=== PATIENT | male | born 1985 | race Caucasian/White ===

== ENCOUNTER 2024-11-30 01:13 | Emergency (ER) | payer OTHER, SELFPAY ==
[2024-11-30 01:36] VITALS: BP 154/84; PULSE 77; RESP 16; TEMP 36.9; O2SAT 96; BMI 42.0
[2024-11-30] MEDS: ONDANSETRON 4 MG/2 ML INJ IV (02:04)
[2024-11-30 02:16] LABS: Add Manual Diff / Slide Review NO; Hematocrit 41.7 % (36-46); Hemoglobin 14.2 g/dL (12.0-16.0); Lymphocytes Absolute Auto 4000 /uL (1100-4500); Mean Corpuscular HGB Conc 34.0 % (30-36); Mean Corpuscular Hemoglobin 29.4 PG (26-34); Mean Corpuscular Volume 86.5 fL (80-100); Platelet Count 345 X10^3/uL (150-400)
[2024-11-30 02:33] LABS: Alanine Aminotransferase 26 IU/L (<35); Albumin 4.2 g/dL (3.5-5.0); Albumin Globulin Ratio 1.1 (1.0-2.8); Alkaline Phosphatase 70 U/L (38-126); Blood Urea Nitrogen 12 mg/dL (7-17); Calcium 9.1 mg/dL (8.4-10.2); Carbon Dioxide 21 mmol/L (22-32); Chloride 109 mmol/L (98-107); Estimated Glomerular Filt Rate > 60 mL/min (>60); Globulin 3.8 g/dL (1.7-4.1); Glucose 108 mg/dL (70-99); HEMOLYSIS 29 (0-50); Lipase 104 U/L (23-300); Potassium 4.0 mmol/L (3.4-5.1); Sodium 138 mmol/L (137-145); Total Protein 8.0 g/dL (6.3-8.2)
--- NOTE | 2024-11-30 04:34 | DI.CT.S_ITS ---
PROCEDURE: CT ABDOMEN PELVIS WO CON INDICATIONS: ruq abdominal pain TECHNIQUE: CT of the abdomen and pelvis was obtained without intravenous contrast. Coronal and sagittal reformats were performed. For radiation dose reduction, the following was used: automated exposure control, adjustment of mA and/or kV according to patient size. COMPARISON: [facility], CT, CT ABDOMEN PELVIS WITH CONTRAST, 10/27/2024, 2:40. FINDINGS: Image quality: Diagnostic. Lower Chest: No significant findings. ABDOMEN: Liver: No contour-deforming mass. Gallbladder: Status post cholecystectomy. Normal caliber CBD. Biliary ducts: No biliary dilation. Pancreas: No ductal dilation. Spleen: Size is within normal limits. Adrenal Glands: 1.2 cm left adrenal nodule measuring -10.3 Hounsfield units on image 38 is most consistent with an adenoma. Normal right adrenal gland. Kidneys and Ureters: No hydronephrosis. No contour-deforming mass. Stomach and Bowel: Normal colonic caliber, without significant wall thickening. Colon diverticulosis is noted without inflammatory changes concerning for acute diverticulitis. Normal appendix. Minimal mesenteric root fat stranding with subcentimeter lymph nodes. No obvious bulky lymphadenopathy. Possible mild small bowel wall thickening in the jejunum. These findings are likely accentuated by incomplete distention. Peritoneum: No abnormal intraperitoneal fluid. No free air. Ventral Wall: No significant hernia. Abdominal Nodes: No retroperitoneal or mesenteric adenopathy by size criteria. Vessels: Aorta and inferior vena cava are normal in size. PELVIS: Pelvic Organs: Status post hysterectomy. Bladder: Unremarkable. Pelvic Nodes: No enlarged lymph nodes. Miscellaneous: No inguinal hernias are seen. Bones: No aggressive osseous abnormality. IMPRESSION: Possible small bowel wall thickening in the jejunum. Correlate for enteritis symptoms. No complications such as obstruction, perforation or abscess. Appendix is normal. Ill-defined fat stranding in the mesenteric root with small subcentimeter lymph nodes. Imaging findings are nonspecific but can be associated with mesenteric panniculitis. Status post hysterectomy and cholecystectomy. Agree with preliminary interpretation by [facility]. Dictated by: Tete White M.D. on 11/30/2024 at 8:48 Approved by: Tete White M.D. on 11/30/2024 at 8:54
--- NOTE | 2024-11-30 04:34 | ED.ABDPAIN ---
HPI - Abdominal Pain General Chief Complaint: Abdominal Pain Stated Complaint: R Side Rib Pain Time Seen by Provider: 11/30/24 04:12 Source: patient Mode of arrival: Ambulatory History of Present Illness HPI narrative: 39-year-old male who had some sudden right upper quadrant abdominal pain earlier this evening that was more sharp in nature. Patient does recall eating some new foods prior to this pain. He does have a history of a cholecystectomy. No fever no chills no other symptoms. Related Data Previous Rx's ?Medication ?Instructions ?Recorded methylprednisolone 4 mg tablets in See Rx Instructions PO .COMPLEX 11/30/24 a dose pack (Medrol (Nael)) #21 ea Allergies Allergy/AdvReac Type Severity Reaction Status Date / Time Iodinated Contrast Media Allergy Mild ITCHING Verified 11/30/24 01:36 bupropion (From Wellbutrin) Allergy Verified 11/30/24 01:36 fish derived Allergy Verified 11/30/24 01:36 morphine Allergy Verified 11/30/24 01:36 Review of Systems Review of Systems ROS Unobtainable: All systems reviewed & are unremarkable except as noted in HPI and below Patient History Smoking Status: Never smoker Exam Narrative Exam Narrative: General: Patient appears to be in no acute distress, acting appropriately Head: normocephalic, atraumatic, HEENT: Pupils equal round reactive, eyes tracking well, neck supple, no JVD Heart: regular rate and rhythm, no murmurs, rubs, or gallops heard Lungs: clear to auscultation, no adventitious sounds Abdomen: soft , pain with palpation in the right upper quadrant area, nondistended, positive bowel sounds Neurological: no focal neurological signs, moving all extremities well, alert and oriented x3, Psych: good judgment ,good insight, mood is normal. Initial Vital Signs Initial Vital Signs: Vital Signs Temperature 98.4 F 11/30/24 01:36 Pulse Rate 77 11/30/24 01:36 Respiratory Rate 16 11/30/24 01:36 Blood Pressure 154/84 H 11/30/24 01:36 Pulse Oximetry 96 11/30/24 01:36 Oxygen Delivery Method Room Air 11/30/24 01:36 Course Orders Ordered: ED Orders 11/30/24 01:55 Complete Blood Count AUTO DIFF Stat Comprehensive Metabolic Panel Stat Lipase Stat 11/30/24 04:30 Urinalysis and Microscopic Stat 11/30/24 04:34 CT abdomen pelvis wo con Stat Ondansetron HCl (Ondansetron 4 Mg/2 Ml Inj) 4 mg IV NOW PRN PRN Reason: Nausea And Vomiting Last Admin: 11/30/24 02:04 Dose: 4 mg Documented By: ZIA Ondansetron HCl (Ondansetron 4 Mg Odt) 4 mg PO NOW PRN PRN Reason: Nausea And Vomiting Discontinued Medications Dexamethasone (Dexamethasone 10 Mg/Ml Vial) 6 mg IV NOW ONE Stop: 11/30/24 05:37 Last Admin: 11/30/24 05:44 Dose: 6 mg Hydromorphone HCl (Hydromorphone Hcl 0.5 Mg/0.5 Ml Syringe) 0.5 mg IV NOW ONE Stop: 11/30/24 04:35 Last Admin: 11/30/24 04:44 Dose: 0.5 mg Hydromorphone HCl (Hydromorphone Hcl 0.5 Mg/0.5 Ml Syringe) 0.5 mg IV NOW ONE Stop: 11/30/24 05:33 Last Admin: 11/30/24 05:41 Dose: 0.5 mg Reevaluation(s) Reevaluation #1: Upon re-evaluation, patient's pain improved some after some Dilaudid and dexamethasone. Vital Signs Vital signs: Vital Signs - 8 hr 11/30/24 01:36 11/30/24 04:38 11/30/24 04:40 Temperature 98.4 F Pulse Rate 77 75 82 Respiratory Rate 16 31 H Blood Pressure 154/84 H Pulse Oximetry 96 97 96 Oxygen Delivery Method Room Air Room Air Room Air 11/30/24 04:40 Temperature Pulse Rate Respiratory Rate Blood Pressure 119/73 Pulse Oximetry Oxygen Delivery Method MDM - Abdominal Pain Lab Data 11/30/24 01:55 11/30/24 01:55 Labs: Lab Results 11/30/24 11/30/24 Range/Units 01:55 04:30 WBC 13.2 H (4.5-11.0) X10^3/uL RBC 4.82 (4.0-5.2) X10^6/uL Hgb 14.2 (12.0-16.0) g/dL Hct 41.7 (36-46) % MCV 86.5 (80-100) fL MCH 29.4 (26-34) PG MCHC 34.0 (30-36) % RDW 13.8 (11.6-14.8) % Plt Count 345 (150-400) X10^3/uL Neut % (Auto) 59.1 (50-75) % Lymph % (Auto) 30.4 (25-40) % [place] % (Auto) 6.9 (3-14) % Eos % (Auto) 2.2 (2-4) % Baso % (Auto) 1.4 (0-2) % Neut # (Auto) 7800 H (3331-7499) /uL Lymph # (Auto) 4000 (6398-9303) /uL [place] # (Auto) 900 (0-900) /uL Eos # (Auto) 300 (0-450) /uL Baso # (Auto) 200 H (0-100) /uL Sodium 138 (137-145) mmol/L Potassium 4.0 (3.4-5.1) mmol/L Chloride 109 H (98-107) mmol/L Carbon Dioxide 21 L (22-32) mmol/L BUN 12 (7-17) mg/dL Creatinine 0.64 (0.52-1.04) mg/dL Estimated GFR > 60 (>60) mL/min BUN/Creatinine Ratio 18.8 (6-22) Glucose 108 H (70-99) mg/dL Calcium 9.1 (8.4-10.2) mg/dL Total Bilirubin 0.2 (0.2-1.3) mg/dL AST 22 (14-36) IU/L ALT 26 (<35) IU/L Alkaline Phosphatase 70 (38-126) U/L Total Protein 8.0 (6.3-8.2) g/dL Albumin 4.2 (3.5-5.0) g/dL Globulin 3.8 (1.7-4.1) g/dL Albumin/Globulin Ratio 1.1 (1.0-2.8) Lipase 104 (23-300) U/L Urine Color Yellow Urine Appearance Clear Urine pH 6.0 (4.5-8.0) Ur Specific [place] >=1.030 H (1.000-1.035) Urine Protein Negative (Negative) Urine Glucose (UA) Negative (Negative) g/dL Urine Ketones Negative (NEGATIVE) Urine Occult Blood Negative (Negative) Urine Nitrate Negative (Negative) Urine Bilirubin Negative (NEGATIVE) Urine Urobilinogen 0.2 (0.2) E.U./dL Ur Leukocyte Esterase Negative (NEGATIVE) Urine RBC None seen (0-5/HPF) Urine WBC 0-1/hpf (0-5/HPF) Ur Squamous Epith Cells 0-1 /hpf (0-5/HPF) Ur Transition Epith Cell 0-1/hpf (0-5/HPF) Urine Bacteria None seen (None) Vol Urine Centrifuged 10ml (spun) Imaging Data CT scan - abdomen/pelvis: Radiologist's Impression: Ill-defined stranding noted that the root of mesentery with associated prominent yet subcentimeter mesenteric lymph nodes. This is nonspecific finding but can be seen in setting of mesenteric panniculitis. No evidence of colitis, diverticulitis or bowel obstruction, obstructive uropathy, or acute appendicitis. [facility] Narrative Medical decision making narrative: 39-year-old male with sudden abdominal pain earlier this evening. It appears that there is some nonspecific finding of potential mesenteric panniculitis. Patient improved some with some Dilaudid and dexamethasone here in the ED. we will prescribe the patient a Medrol Dosepak to continue on as an outpatient and advised to follow up with PCP as planned. Come back to ER if abdominal pain worsens. Discharge Plan Departure Patient Disposition: Home Clinical Impression: Mesenteric panniculitis Instructions: DI for Mesenteric Adenitis-Adult Activity Restrictions/Additional Instructions: Unclear of why there is some inflammation in the fat tissue around your intestine. Take the steroids as prescribed. Follow up with PCP if not improved or can come back to ER if abdominal pain worsens. Prescriptions: New methylprednisolone [Medrol (Nael)] 4 mg tablets,dose pack See Rx Instructions .ROUTE .COMPLEX Qty: 21 0RF Rx Instructions: orally per package directions Stand Alone Forms: Patient Portal/API
[2024-11-30 04:37] LABS: Appearance Urine UA CLEAR; Bilirubin Urine UA NEGATIVE (NEGATIVE); Color Urine UA YELLOW; Glucose Urine UA NEGATIVE (Negative); Ketones Urine UA NEGATIVE (NEGATIVE); Leukocyte Esterase Urine UA NEGATIVE (NEGATIVE); Nitrite Urine UA NEGATIVE (Negative); Occult Blood Urine UA NEGATIVE (Negative); Protein Urine UA NEGATIVE (Negative); Specific Gravity Urine UA >=1.030 (1.000-1.035); Urobilinogen Urine UA 0.2 E.U./dL (0.2)
[2024-11-30 04:38] VITALS: PULSE 75; O2SAT 97
[2024-11-30 04:40] VITALS: BP 119/73; PULSE 82; RESP 31; O2SAT 96
[2024-11-30 04:40] LABS: pH Urine UA 6.0 (4.5-8.0)
--- NOTE | 2024-11-30 04:46 | PC.NURSE ---
Pt to imaging via ED stretcher with computer hardware technician
--- NOTE | 2024-11-30 05:21 | PC.NURSE ---
Pt ambulatory to restroom without difficulty or assistance
== END 2024-11-30 06:13 | disposition home or self-care (01) ==
PROVIDERS: Emergency Provider Family Medicine
DX: K65.4 Sclerosing mesenteritis (principal)
CPT/HCPCS: 36415; 74176; 80053; 81001; 83690; 85025; 96374; 96375; 96376; 99284; J1100; J1171; J2405

== ENCOUNTER 2024-12-10 00:39 | Emergency (ER) | payer OTHER, SELFPAY ==
[2024-12-10 00:49] VITALS: BP 136/80; PULSE 70; RESP 19; TEMP 36.5; O2SAT 100; BMI 42.0
[2024-12-10 02:37] LABS: Add Manual Diff / Slide Review NO; Hematocrit 42.6 % (41-53); Hemoglobin 14.6 g/dL (13.5-17.5); Lymphocytes Absolute Auto 4000 /uL (1100-4500); Mean Corpuscular HGB Conc 34.3 % (30-36); Mean Corpuscular Hemoglobin 29.8 PG (26-34); Mean Corpuscular Volume 86.8 fL (80-100); Platelet Count 363 X10^3/uL (150-400)
[2024-12-10 02:56] LABS: Alanine Aminotransferase 20 IU/L (<50); Albumin 4.4 g/dL (3.5-5.0); Albumin Globulin Ratio 1.2 (1.0-2.8); Alkaline Phosphatase 81 U/L (38-126); Blood Urea Nitrogen 8 mg/dL (9-20); Calcium 9.5 mg/dL (8.4-10.2); Carbon Dioxide 21 mmol/L (22-32); Chloride 107 mmol/L (98-107); Estimated Glomerular Filt Rate > 60 mL/min (>60); Globulin 3.8 g/dL (1.7-4.1); Glucose 103 mg/dL (70-99); HEMOLYSIS < 15 (0-50); Lipase 82 U/L (23-300); Potassium 4.2 mmol/L (3.4-5.1); Sodium 139 mmol/L (137-145); Total Protein 8.2 g/dL (6.3-8.2)
[2024-12-10 03:17] LABS: Appearance Urine UA CLEAR; Bilirubin Urine UA NEGATIVE (NEGATIVE); Color Urine UA YELLOW; Glucose Urine UA NEGATIVE (Negative); Ketones Urine UA NEGATIVE (NEGATIVE); Leukocyte Esterase Urine UA NEGATIVE (NEGATIVE); Nitrite Urine UA NEGATIVE (Negative); Occult Blood Urine UA NEGATIVE (Negative); Protein Urine UA NEGATIVE (Negative); Specific Gravity Urine UA 1.020 (1.000-1.035); Urobilinogen Urine UA 0.2 E.U./dL (0.2); pH Urine UA 5.5 (4.5-8.0)
--- NOTE | 2024-12-10 03:17 | ED.ABDPAIN ---
HPI - Abdominal Pain General Chief Complaint: Abdominal Pain Stated Complaint: URQ Pain, N, diarrhea Time Seen by Provider: 12/10/24 02:24 Source: patient Mode of arrival: Ambulatory History of Present Illness HPI narrative: 39-year-old male status post transition gender reassignment surgery 4 years ago, identifies as female, prior cholecystectomy remote, history of mesenteric panniculitis, complains of 18 hours duration nontraumatic right flank and right anterior abdominal pain. Denies known history of kidney stones, denies history of urinary tract infections, no painful or frequent urination. Some nausea without emesis. No recent diarrhea loose stools for black or red stools or mucoid stools. No history recalled of prior episodes colitis, diverticulitis, Crohn's disease peptic ulcers. Related Data Previous Rx's ?Medication ?Instructions ?Recorded methylprednisolone 4 mg tablets in See Rx Instructions PO .COMPLEX 11/30/24 a dose pack (Medrol (Nael)) #21 ea prednisone 20 mg tablet 40 mg (2 x 20 mg) PO DAILY 5 days 12/10/24 #10 tabs Allergies Allergy/AdvReac Type Severity Reaction Status Date / Time Iodinated Contrast Media Allergy Mild ITCHING Verified 12/10/24 00:48 bupropion (From Wellbutrin) Allergy Verified 12/10/24 00:48 fish derived Allergy Verified 12/10/24 00:48 morphine Allergy Verified 12/10/24 00:48 Patient History Social History Smoking Status: Former smoker Smoking Status: Former smoker tobacco type: cigarettes Exam Narrative Exam Narrative: GENERAL: Well-developed patient, in mild distress. HEAD: Atraumatic. Normocephalic. EYES: Pupils equal round and reactive. Extraocular motions intact. No scleral icterus. No injection or drainage. ENT: Nose without bleeding, purulent drainage. Throat without erythema, tonsillar hypertrophy or exudate. Airway patent. NECK: Trachea midline. Non tender CARDIOVASCULAR: Regular rate and rhythm without murmurs, gallops, or rubs. RESPIRATORY: Clear to auscultation. Breath sounds equal bilaterally. No wheezes, rales, or rhonchi. GASTROINTESTINAL: Obese with pannus, no skin redness or lesions. Mild tenderness right upper quadrant, right middle quadrant right lower quadrant abdomen. Nondistended. Bowel tones unremarkable without rushes or tinkles. EXTREMITIES: No edema or joint tenderness. BACK: Nontender without deformity or crepitance. No flank tenderness. NEURO: AOx3. Motor functions grossly nonfocal. SKIN: No rash or erythema of visible areas Initial Vital Signs Initial Vital Signs: Vital Signs Temperature 97.7 F 12/10/24 00:49 Pulse Rate 70 12/10/24 00:49 Respiratory Rate 19 12/10/24 00:49 Blood Pressure 136/80 12/10/24 00:49 Pulse Oximetry 100 12/10/24 00:49 Oxygen Delivery Method Room Air 12/10/24 00:49 Course Orders Ordered: Discontinued Medications Hydromorphone HCl (Hydromorphone Hcl 0.5 Mg/0.5 Ml Syringe) 0.5 mg IV NOW ONE Stop: 12/10/24 03:29 Last Admin: 12/10/24 03:45 Dose: 0.5 mg Documented By: Sodium Chloride (Normal Saline 0.9%) 1,000 mls @ 1,000 mls/hr IV BOLUS ONE Stop: 12/10/24 04:25 Last Infusion: 12/10/24 04:52 Dose: Infused Documented By: Admin: 12/10/24 03:44 Dose: 1,000 mls/hr Documented By: Methocarbamol (Methocarbamol 500 Mg Tablet) 500 mg PO NOW ONE Stop: 12/10/24 04:34 Last Admin: 12/10/24 04:57 Dose: Not Given Documented By: Ondansetron HCl (Ondansetron 4 Mg/2 Ml Inj) 4 mg IV NOW ONE Stop: 12/10/24 03:29 Last Admin: 12/10/24 03:44 Dose: 4 mg Documented By: Prednisone (Prednisone 20 Mg Tablet) 60 mg PO NOW ONE Stop: 12/10/24 04:40 Last Admin: 12/10/24 04:51 Dose: 60 mg Documented By: Tramadol HCl (Tramadol 50 Mg Tablet) 50 mg PO NOW ONE Stop: 12/10/24 04:35 Last Admin: 12/10/24 04:51 Dose: 50 mg Documented By: Tramadol HCl (Tramadol 50 Mg Prepack) 1 bottle MISC DIRECTED ONE Stop: 12/10/24 04:35 Last Admin: 12/10/24 04:51 Dose: 1 bottle Documented By: Vital Signs Vital signs: Vital Signs - 8 hr 12/10/24 00:49 Temperature 97.7 F Pulse Rate 70 Respiratory Rate 19 Blood Pressure 136/80 Pulse Oximetry 100 Oxygen Delivery Method Room Air MDM - Abdominal Pain Lab Data Attestation: I reviewed the patient's lab results. Lab results narrative: White blood cell count 01984, hemoglobin 14.6, platelets adequate. Glucose 103. Renal function and electrolytes normal. Serum CO2 21 slight decreased. Liver functions and lipase normal. 12/10/24 02:08 12/10/24 02:08 Labs: Lab Results 12/10/24 12/10/24 Range/Units 02:08 03:08 WBC 13.5 H (4.5-11.0) X10^3/uL RBC 4.91 (4.5-5.9) X10^6/uL Hgb 14.6 (13.5-17.5) g/dL Hct 42.6 (41-53) % MCV 86.8 (80-100) fL MCH 29.8 (26-34) PG MCHC 34.3 (30-36) % RDW 13.7 (11.6-14.8) % Plt Count 363 (150-400) X10^3/uL Neut % (Auto) 56.9 (50-75) % Lymph % (Auto) 30.0 (25-40) % [place] % (Auto) 8.9 (3-14) % Eos % (Auto) 2.0 (2-4) % Baso % (Auto) 2.2 H (0-2) % Neut # (Auto) 7700 H (0213-5609) /uL Lymph # (Auto) 4000 (0014-8862) /uL [place] # (Auto) 1200 H (0-900) /uL Eos # (Auto) 300 (0-450) /uL Baso # (Auto) 300 H (0-100) /uL Sodium 139 (137-145) mmol/L Potassium 4.2 (3.4-5.1) mmol/L Chloride 107 (98-107) mmol/L Carbon Dioxide 21 L (22-32) mmol/L BUN 8 L (9-20) mg/dL Creatinine 0.73 (0.66-1.25) mg/dL Estimated GFR > 60 (>60) mL/min BUN/Creatinine Ratio 11.0 (6-22) Glucose 103 H (70-99) mg/dL Calcium 9.5 (8.4-10.2) mg/dL Total Bilirubin 0.3 (0.2-1.3) mg/dL AST 22 (17-59) IU/L ALT 20 (<50) IU/L Alkaline Phosphatase 81 (38-126) U/L Total Protein 8.2 (6.3-8.2) g/dL Albumin 4.4 (3.5-5.0) g/dL Globulin 3.8 (1.7-4.1) g/dL Albumin/Globulin Ratio 1.2 (1.0-2.8) Lipase 82 (23-300) U/L Urine Color Yellow Urine Appearance Clear Urine pH 5.5 (4.5-8.0) Ur Specific [place] 1.020 (1.000-1.035) Urine Protein Negative (Negative) Urine Glucose (UA) Negative (Negative) g/dL Urine Ketones Negative (NEGATIVE) Urine Occult Blood Negative (Negative) Urine Nitrate Negative (Negative) Urine Bilirubin Negative (NEGATIVE) Urine Urobilinogen 0.2 (0.2) E.U./dL Ur Leukocyte Esterase Negative (NEGATIVE) Urine RBC None seen (0-5/HPF) Urine WBC None seen (0-5/HPF) Ur Squamous Epith Cells 0-1 /hpf (0-5/HPF) Urine Bacteria None seen (None) Ur Culture Indicated? Cult not indicated Vol Urine Centrifuged 10ml (spun) MDM Narrative Medical decision making narrative: Right sided abominal pain, afebrile, SIRS screen negative. Prior mesenteric panniculitis. Remote sidra. DDx includes PUD, colitis, diverticulitis, UTI, ureretal stone, bowel obstruction, hernia, choledocholitiasis, pancreatitis, recurrence mesenteric pannicuitis, muscular/radicular, constipation, other. Lab data: White blood cell count 97067, hemoglobin 14.6, platelets adequate. Glucose 103. Renal function and electrolytes normal. Serum CO2 21 slight decreased. Liver functions and lipase normal. CT abdomen and pelvis. Impressions: ?No acute findings. Left adrenal adenoma. See tele radiology report. In the text portion there is also description ?mildly increased density of the central mesentery compatible with mild mesenteric panniculitis,? that was not mentioned in the impression section. Unclear if mesenteric panniculitis is acute, chronic, or even related to current right sided pain. Trial of steroid, recent Medrol Dosepak tapering regimen noted. We will give oral prednisone 60 mg now, and prednisone pulse 40 mg daily for the next 5 days. Consider follow up with PCP if not improving in the next couple of days. Contact information provided for general surgery clinic as well, though this is not typically a surgical emergency or surgical amenable condition. Consider EGD or other further dx evaluation as outpatient for now. Return precautions. Discharged home. Home pack of tramadol to use for pain control if needed. Discharge Plan Departure Patient Disposition: Home Clinical Impression: Abdominal pain, Mesenteric panniculitis, Adrenal adenoma Activity Restrictions/Additional Instructions: History of mesenteric panniculitis, prior remote gallbladder surgery, previous gender revision surgeries. Right-sided abdominal discomfort. Recent mesenteric panniculitis having treated with a course of tapering methyl prednisolone Medrol Dosepak steroid. Screening labs unremarkable. CT showed no colitis or diverticulitis, did show some prominence of the central mesentery suspicious for mesenteric panniculitis. This might be an acute finding or could be more chronic. We will try course of steroids with slightly different class, oral prednisone 60 mg given in the emergency department, with prescription for prednisone pulse 40 mg daily for the next 5 days, prescription sent to your pharmacy. Home pack of tramadol for pain control if needed. Recheck symptoms with your regular doctor, given contact information for local general surgery as well. You might need referral from your primary care provider. Recheck with your regular doctor in the next couple of days if symptoms are not improving. Return to this/nearest emergency department for any change worsening symptoms or any concerns prior. Adrenal adenoma incidentally noted on imaging. This is not a painful condition, further workup an outpatient for now with your regular doctor. Prescriptions: New prednisone 20 mg tablet 40 mg PO DAILY 5 Days Qty: 10 0RF No Action methylprednisolone [Medrol (Nael)] 4 mg tablets,dose pack See Rx Instructions .ROUTE .COMPLEX Qty: 21 0RF Rx Instructions: orally per package directions Referrals: Jamie Lee MD [Physician, General Surgery] Preston Gordon MD [Physician, General Surgery] Stand Alone Forms: Patient Portal/API
[2024-12-10 03:24] LABS: Culture Indicated Urine Cult Not Indicated
--- NOTE | 2024-12-10 03:27 | DI.CT.S_ITS ---
PROCEDURE: CT ABDOMEN PELVIS WO CON INDICATIONS: R flank/abd pain, hx contrast allergy TECHNIQUE: CT of the abdomen and pelvis was obtained without intravenous contrast. Coronal and sagittal reformats were performed. For radiation dose reduction, the following was used: automated exposure control, adjustment of mA and/or kV according to patient size. COMPARISON: [facility], CT, CT ABDOMEN PELVIS WO CON, 11/30/2024, 4:44. [facility], CT, CT CHEST ABDOMEN PELVIS WITHOUT CONTRAST, 12/01/2024, 1:26. FINDINGS: Image quality: Diagnostic Lower chest: Unremarkable lung bases. Breast implants partially seen. Liver: Hepatic steatosis. No contour deforming mass. Solid organs are not well assessed without IV contrast Gallbladder and biliary system: Cholecystectomy clips, mildly ectatic biliary system again seen, probably related to post surgical state Pancreas: No ductal dilation Spleen: Nonenlarged Adrenals: 1.6 cm left adrenal adenoma. Kidneys: No hydronephrosis. No contour deforming mass. No calcified stone identified. Vessels and lymph nodes: No abdominal aortic aneurysm. No enlarged lymph nodes by size criteria Bowel and peritoneum: No bowel obstruction. No drainable abscess or ascites Nondilated appendix Body wall: Unremarkable Pelvis: Under distended urinary bladder. Prostate is not well assessed on this study. Small focus of gas again seen at the posterior aspect. Bones: No aggressive appearing osseous abnormality. IMPRESSION: No acute abdominal pelvic abnormality. No hydronephrosis or obstructing stone identified. No significant discrepancy from the preliminary report. Other findings above. Dictated by: Lázaro Schwartz M.D. on 12/10/2024 at 7:27 Approved by: Lázaro Schwartz M.D. on 12/10/2024 at 7:31
[2024-12-10] MEDS: ONDANSETRON 4 MG/2 ML INJ IV (03:44)
[2024-12-10] MEDS: SODIUM CHLORIDE 0.9% 1,000 ML 1000 ML IV (03:44)
[2024-12-10 04:57] VITALS: BP 133/83; PULSE 74; RESP 18; O2SAT 98
== END 2024-12-10 04:58 | disposition home or self-care (01) ==
PROVIDERS: Emergency Provider Emergency Medicine
DX: K65.4 Sclerosing mesenteritis (principal); D35.02 Benign neoplasm of left adrenal gland; R10.9 Unspecified abdominal pain; R11.0 Nausea; F17.210 Nicotine dependence, cigarettes, uncomplicated
CPT/HCPCS: 36415; 74176; 80053; 81001; 83690; 85025; 96361; 96374; 96375; 99284; J1171; J2405; J7030

== ENCOUNTER 2025-02-15 19:49 | Emergency (ER) | payer OTHER, SELFPAY ==
[2025-02-15 20:36] VITALS: BP 130/75; PULSE 77; RESP 16; TEMP 36.8; O2SAT 97; BMI 42.8
--- NOTE | 2025-02-15 20:50 | PC.NURSE ---
triaged pt and returned to [facility], informed of extended wait times, and provided ice pack, pt agreeable
--- NOTE | 2025-02-15 21:54 | DI.RAD.S_ITS ---
PROCEDURE: XR SHOULDER RT MIN 2V INDICATIONS: injury TECHNIQUE: 3 views of the shoulder were acquired. COMPARISON: None. FINDINGS: Bones: No fractures or dislocations. No suspicious bony lesions. Visualized ribs appear intact. Soft tissues: No suspicious soft tissue calcifications. IMPRESSION: No visualized acute fracture or dislocation. However, if clinical concern and/or pain persist, short interval imaging followup in 7-10 days is recommended, as occult injury cannot be definitively excluded. Dictated by: Kathryn Mendoza M.D. on 02/15/2025 at 22:30 Approved by: Kathryn Mendoza M.D. on 02/15/2025 at 22:32
--- NOTE | 2025-02-16 00:15 | ED_ITS ---
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 Hurts with movement. Sensation of dislocation/relocation. No numbness or tingling to distal forearm in the right side. No weakness to the elbow forearm wrist fingers. Related Data Previous Rx's ?Medication ?Instructions ?Recorded methylprednisolone 4 mg tablets in See Rx Instructions PO .COMPLEX 11/30/24 a dose pack (Medrol (Nael)) #21 ea Allergies Allergy/AdvReac Type Severity Reaction Status Date / Time Iodinated Contrast Media Allergy Mild ITCHING Verified 02/15/25 20:50 bupropion (From Wellbutrin) Allergy Verified 02/15/25 20:50 fish derived Allergy Verified 02/15/25 20:50 morphine Allergy Verified 02/15/25 20:50 Patient History tobacco type: cigarettes Exam Narrative Exam Narrative: GENERAL: Well-developed patient, in mild distress. HEAD: Atraumatic. Normocephalic. EYES: Pupils equal round and reactive. Extraocular motions intact. No scleral icterus. No injection or drainage. ENT: Nose without bleeding, purulent drainage. Throat without erythema, tonsillar hypertrophy or exudate. Airway patent. NECK: Trachea midline. Non tender CARDIOVASCULAR: Regular rate and rhythm without murmurs, gallops, or rubs. RESPIRATORY: Clear to auscultation. Breath sounds equal bilaterally. No wheezes, rales, or rhonchi. GASTROINTESTINAL: Abdomen soft, non-tender, nondistended. EXTREMITIES: No anterior fullness or step-off right shoulder, some tenderness to the right anterior shoulder bicipital groove, no tenderness along the clavicle nor trapezius or scapula. BACK: Nontender without deformity or crepitance. No flank tenderness. NEURO: AOx3. Motor functions grossly nonfocal. SKIN: No rash or erythema of visible areas Initial Vital Signs Initial Vital Signs: Vital Signs Temperature 98.2 F 02/15/25 20:36 Pulse Rate 77 02/15/25 20:36 Respiratory Rate 16 02/15/25 20:36 Blood Pressure 130/75 02/15/25 20:36 Pulse Oximetry 97 02/15/25 20:36 Oxygen Delivery Method Room Air 02/15/25 20:36 Course Orders Ordered: ED Orders 02/15/25 21:54 XR shoulder RT 2+ views Stat Discontinued Medications Hydrocodone Bitart/Acetaminophen (Hydrocodone/Acet 5/325 Tablet) 1 tab PO NOW ONE Stop: 02/16/25 00:23 Last Admin: 02/16/25 00:26 Dose: 1 tab Documented By: Hydrocodone Bitart/Acetaminophen (Hydrocodone/Acet 5/325 Prepack) 1 bottle MISC DIRECTED ONE Stop: 02/16/25 00:23 Last Admin: 02/16/25 00:27 Dose: 1 bottle Documented By: Vital Signs Vital signs: Vital Signs - 8 hr 02/16/25 00:23 Pulse Rate 86 Respiratory Rate 18 Blood Pressure 143/85 H Pulse Oximetry 98 Oxygen Delivery Method Room Air MDM - Extremity Injury (Upper) Imaging Data Right shoulder x-ray series: Radiologist's Impression: [address] [address] XRay Report Signed Patient: Yahaira Gillette MR#: [id number] : 1985 Acct:[id number] Age/Sex: 40 / F Date of Service: 02/15/25 Loc: ED Accession Number: [id number] Procedure: XR shoulder RT 2+ views Ordering Provider: Amanda Santos MD PROCEDURE: XR SHOULDER RT MIN 2V INDICATIONS: injury TECHNIQUE: 3 views of the shoulder were acquired. COMPARISON: None. FINDINGS: Bones: No fractures or dislocations. No suspicious bony lesions. Visualized ribs appear intact. Soft tissues: No suspicious soft tissue calcifications. IMPRESSION: No visualized acute fracture or dislocation. However, if clinical concern and/or pain persist, short interval imaging followup in 7-10 days is recommended, as occult injury cannot be definitively excluded. Dictated by: Kathryn Mendoza M.D. on 02/15/2025 at 22:30 Approved by: Kathryn Mendoza M.D. on 02/15/2025 at 22:32 [facility] [place] Narrative Medical decision making narrative: 40-year-old female with prior right rotator cuff shoulder injury treated conservatively, successfully completed physical therapy course, had new injury lifting tonight, same right side, anterior bicipital groove area tenderness, without gross step-off or anterior fullness. X-ray without fracture dislocation changes, see radiology report. Placed in right shoulder immobilizer. Follow up with Orthopedic surgery advised. Dose given for hydrocodone/APAP, home pack provided. Discharged home with family. Follow up with Orthopedic surgery as above. Return precautions discussed. Discharge Plan Departure Patient Disposition: Home Clinical Impression: Right shoulder strain Activity Restrictions/Additional Instructions: Right-handed, history of right shoulder rotator cuff injury treated conservatively without surgery, completed a course of physical therapy. New injury with right anterior shoulder pain today. X-ray without dislocation changes, nor any fracture bony changes. Placed in sling. Pain medications given. Consider follow up with Orthopedic surgery, contact information provided. You might need referral from your primary care provider. Recheck earlier if any change worsening symptoms or concerns prior. Prescriptions: No Action methylprednisolone [Medrol (Nael)] 4 mg tablets,dose pack See Rx Instructions .ROUTE .COMPLEX Qty: 21 0RF Rx Instructions: orally per package directions Referrals: Antonio Keane MD [Physician, Orthopedic Surgery] Stand Alone Forms: Patient Portal/API, Work Release Note
[2025-02-16 00:23] VITALS: BP 143/85; PULSE 86; RESP 18; O2SAT 98
== END 2025-02-16 00:31 | disposition home or self-care (01) ==
PROVIDERS: Emergency Provider Emergency Medicine
DX: S43.401A Unspecified sprain of right shoulder joint, initial encounter (principal); M25.511 Pain in right shoulder; Z87.828 Personal history of other (healed) physical injury and trauma; X50.9XXA Other and unspecified overexertion or strenuous movements or postures, initial encounter
CPT/HCPCS: 73030; 99283